=== PATIENT | male | born 1995 | race Caucasian/White ===

== ENCOUNTER 2018-04-24 10:52 | Emergency (ER) | payer OTHER ==
[~2018-04-24] VITALS: Ht 172.7 cm; Wt 68.0 kg
[2018-04-24 11:13] VITALS: Ht 172.7 cm; Wt 68.0 kg
[2018-04-24 11:58] VITALS: BP 121/77
== END 2018-04-24 11:58 | disposition home or self-care (01) ==
LOC: ED 10:52
DX: S39.012A Strain of muscle, fascia and tendon of lower back, initial encounter (principal); S29.011A Strain of muscle and tendon of front wall of thorax, initial encounter; X50.0XXA Overexertion from strenuous movement or load, initial encounter; Y93.89 Activity, other specified; Y92.89 Other specified places as the place of occurrence of the external cause; Y99.8 Other external cause status
CPT/HCPCS: J1885; Q0092

== ENCOUNTER 2019-09-16 08:18 | Emergency (ER) | payer SELFPAY ==
[~2019-09-16] VITALS: Ht 172.7 cm; Wt 72.6 kg
[2019-09-16 08:31] VITALS: BP 140/83; Ht 172.7 cm; Wt 72.6 kg
== END 2019-09-16 09:15 | disposition home or self-care (01) ==
LOC: ED 08:18
DX: L25.9 Unspecified contact dermatitis, unspecified cause (principal)